=== PATIENT | female | born 1970 | race American Indian/Alaskan Native ===

== ENCOUNTER 2018-05-13 16:01 | Emergency (ER) | payer MEDICAID, OTHER ==
[2018-05-13] MEDS ORDERED: LORazepam 2 MG/ML INJ IVP ONE (16:09)
[2018-05-13] MEDS ORDERED: NS 1,000 ML IV ONE (16:09)
--- NOTE | 2018-05-13 16:12 | EDPHY ---
H & P Time Seen by Provider: 05/13/18 16:02 HPI/ROS: CHIEF COMPLAINT: Anxiety HISTORY OF PRESENT ILLNESS: Patient is a 47-year-old female who comes to the emergency department via EMS for anxiety attack. She has a history of anxiety but does not take any medications. She reports having history of hepatitis and cirrhosis and was told by her doctor at [facility] that if she ever felt tingly all over her body to call an ambulance. Today she had a stressful situation and began to hyperventilate and felt tingly all over. She then flagged down an ambulance. She denies chest pain or shortness of breath. She denies recent fevers. She did vomit once this morning for unknown reasons. No diarrhea. REVIEW OF SYSTEMS: Constitutional: denies: chills, fever, recent illness, recent injury EENTM: denies: blurred vision, double vision, nose congestion Respiratory: denies: cough, shortness of breath Cardiac: denies: chest pain, irregular heart rate, lightheadedness, palpitations Gastrointestinal/Abdominal: See HPI denies: abdominal pain, diarrhea, blood streaked stools Genitourinary: denies: dysuria, frequency, hematuria, pain Musculoskeletal: denies: joint pain, muscle pain Skin: denies: lesions, rash, jaundice, bruising Neurological: denies: headache, numbness, paresthesia, tingling, dizziness, weakness Hematologic/Lymphatic: denies: blood clots, easy bleeding, easy bruising Immunologic/allergic: denies: HIV/AIDS, transplant EXAM: GENERAL: The significantly anxious, difficulty cooperating HEAD: Atraumatic, normocephalic. EYES: Pupils equal round and reactive to light, extraocular movements intact, sclera anicteric, conjunctiva are normal. ENT: TMs normal, nares patent, oropharynx clear without exudates. Moist mucous membranes. NECK: Normal range of motion, supple without lymphadenopathy or JVD. LUNGS: Breath sounds clear to auscultation bilaterally and equal. No wheezes rales or rhonchi. HEART: Regular rate and rhythm without murmurs, rubs or gallops. ABDOMEN: Soft, nontender, normoactive bowel sounds. No guarding, no rebound. No masses appreciated. BACK: No CVA tenderness, no spinal tenderness, step-offs or deformities EXTREMITIES: Normal range of motion, no pitting or edema. No clubbing or cyanosis. NEUROLOGICAL: Cranial nerves II through XII grossly intact. Normal speech, normal gait. 5/5 strength, normal movement in all extremities, normal sensation PSYCH: Normal mood, normal affect. SKIN: Warm, dry, normal turgor, no visible rashes or lesions. Source: Patient, EMS Exam Limitations: Clinical condition - Medical/Surgical History Hx Asthma: No Hx Chronic Respiratory Disease: No Hx Diabetes: No Hx Cardiac Disease: No Hx Renal Disease: No Hx Cirrhosis: Yes Hx Alcoholism: Yes - Family History Significant Family History: No pertinent family hx - Social History Alcohol Use: Heavy Drug Use: Marijuana Constitutional: Initial Vital Signs Temperature (C) 36.8 C 05/13/18 16:03 Heart Rate 118 H 05/13/18 16:03 Respiratory Rate 20 05/13/18 16:03 Blood Pressure 117/98 H 05/13/18 16:03 O2 Sat (%) 98 05/13/18 16:03 O2 Delivery Mode Room Air Allergies/Adverse Reactions: Opioids - Morphine Analogues Allergy (Verified 05/13/18 16:14) pollen extracts Allergy (Verified 05/13/18 16:14) Medical Decision Making - Diagnostics EKG Interpretation: An EKG obtained and was read and documented in trace view. Please see trace view for full reading and report. Sinus rhythm, no acute ischemic changes ED Course/Re-evaluation: 4:40 p.m. the patient is doing well. She is feels much better after Ativan. She is resting comfortably in bed. Her boyfriend is lying on top of her. We discussed options and she is eager to go home. They declined further workup or testing. We discussed indications for returning. Differential Diagnosis: Partial list of the Differential diagnosis considered include but were not limited to; anxiety attack alcohol withdrawal, acute coronary disease and although unlikely based on the history and physical exam, I also considered electrolyte abnormality, head injury, seizure. I discussed these differential diagnoses and the plan with the patient as well as the usual and expected course. The patient understands that the diagnosis is provisional and that in medicine we are not always correct and that further workup is often warranted. Usual and customary warnings were given. All of the patient's questions were answered. The patient was instructed to return to the emergency department should the symptoms at all worsen or return, otherwise to followup with the physician as we discussed. - Data Points Medications Given: Discontinued Medications Sodium Chloride (Ns) 1,000 mls @ 0 mls/hr IV EDNOW ONE; Wide Open PRN Reason: Protocol Stop: 05/13/18 16:10 Last Admin: 05/13/18 16:17 Dose: 1,000 mls Lorazepam (Ativan Injection) 1 mg IVP EDNOW ONE Stop: 05/13/18 16:10 Last Admin: 05/13/18 16:17 Dose: 1 mg Departure - Departure Disposition: Home, Routine, Self-Care Clinical Impression: Anxiety attack Condition: Fair Instructions: Anxiolysis in Adults (ED) Referrals: Patient,NotPresent [Unknown] - As per Instructions [facility],. [Clinic] - As per Instructions
--- NOTE | 2018-05-13 16:19 | CPEKG ---
Heart Rate: 99 RR Interval: 606 P-R Interval: 152 QRSD Interval: 74 QT Interval: 364 QTC Interval: 468 P Jean: 48 QRS Jean: 24 T Wave Jean: 29 EKG Severity - NORMAL ECG - EKG Impression: SINUS RHYTHM Electronically Signed By: Zurdo Ma 13-May-2018 16:28:06
[2018-05-13 16:48] VITALS: BP 113/76
== END 2018-05-13 16:47 | disposition home or self-care (01) ==
DX: F41.9 Anxiety disorder, unspecified (principal); E86.9 Volume depletion, unspecified
CPT/HCPCS: 96374; J2060

== ENCOUNTER 2019-04-25 08:13 | Inpatient (IN) | payer MEDICAID, OTHER | END 2019-04-29 09:15 | disposition home or self-care (01) | LOC: F2W 12:18 ==